=== PATIENT | male | born 1990 ===

== ENCOUNTER 2016-10-01 18:44 | Emergency (ER) | payer OTHER ==
[2016-10-01 19:01] VITALS: TEMP 97.8; O2SAT 99
--- NOTE | 2016-10-01 19:50 | C.PDOC ---
History Of Present Illness 26 year old patient presents to the ED requesting detox from heroin. Patient reports he snorts it. Patient was here 2 weeks ago in the detox program, and signed out due to immigration issues. Patient denies suicidal ideation, other substance abuse, or any other complaints at this time. Time Seen by Provider: 10/01/16 19:00 Chief Complaint (Nursing): Substance Abuse History Per: Patient History/Exam Limitations: no limitations Onset/Duration Of Symptoms: Other Current Symptoms Are (Timing): Still Present Suicide/Self Injury Attempted (Context): None Modifying Factor(s): Other (heroin) Severity: None Pain Scale Rating Of: 0 Associated Symptoms: denies: Suicidal Thoughts Recent travel outside of the [place]: No Past Medical History Reviewed: Historical Data, Nursing Documentation, Vital Signs Vital Signs: Last Vital Signs Temp 97.8 F 10/01/16 18:58 Pulse 97 H 10/01/16 20:22 Resp 17 10/01/16 20:22 BP 149/83 10/01/16 20:22 Pulse Ox 99 10/01/16 20:56 Family History: States: Unknown Family Hx - Social History Hx Alcohol Use: No Hx Substance Use: Yes - Immunization History Hx Tetanus Toxoid Vaccination: No Hx Influenza Vaccination: No Hx Pneumococcal Vaccination: No Review Of Systems Except As Marked, All Systems Reviewed And Found Negative. Psych: Negative for: Suicidal ideation Physical Exam - Physical Exam Appears: Well, Non-toxic, No Acute Distress Skin: Dry Head: Atraumatic, Normacephalic Eye(s): bilateral: PERRL Nose: No Epistaxis Oral Mucosa: Moist Tongue: No Swelling Lips: No Swelling Neck: Normal ROM, Supple Cardiovascular: Rhythm Regular Respiratory: No Decreased Breath Sounds, No Accessory Muscle Use Gastrointestinal/Abdominal: No Soft, No Tenderness Neurological/Psych: Oriented x3, Other (no focal deficits) Gait: Steady ED Course And Treatment O2 Sat by Pulse Oximetry: 99 (RA) Pulse Ox Interpretation: Normal Medical Decision Making Medical Decision Making: No detox beds are available at this time. List of other options are provided to the patient. Patient requests something to help with the symptoms. Plan: * Catapres Disposition - Disposition Referrals: [facility] at [facility] [Outside] Disposition: HOME/ ROUTINE Disposition Time: 20:22 Condition: STABLE Additional Instructions: Please follow up with a primary doctor. Return to the ER for any worsening symptoms or for any other concerns. Instructions: Narcotic Abuse (ED) Forms: General Discharge Instructions - Clinical Impression Clinical Impression: Opiate dependence - Scribe Statement The provider has reviewed the documentation as recorded by the Scribe Dionne Holland Provider Attestation: All medical record entries made by the Scribe were at my direction and personally dictated by me. I have reviewed the chart and agree that the record accurately reflects my personal performance of the history, physical exam, medical decision making, and the department course for this patient. I have also personally directed, reviewed, and agree with the discharge instructions and disposition.
[2016-10-01 20:23] VITALS: BP 149/83; PULSE 97; RESP 17
== END 2016-10-01 20:23 | disposition home or self-care (01) ==
LOC: C.ER 18:44
DX: F11.20 Opioid dependence, uncomplicated (principal)

== ENCOUNTER 2017-03-18 13:04 | Emergency (ER) | payer SELFPAY ==
[2017-03-18 13:26] VITALS: RESP 20; TEMP 98.5; O2SAT 97
--- NOTE | 2017-03-18 13:50 | C.PDOC ---
History Of Present Illness 03/18/2017 Pt is a 26 year old male, who presents to the emergency department requesting HIV testing. Patient reports that two months ago he had unprotected sex with a female who recently learned about a previous partner who was HIV positive (she had sex with that previous partner 6 months ago). Patient denies any fever, penile discharge, dysuria, shortness of breath, nausea, vomiting, diarrhea, or other complaints. PMD: None Time Seen by Provider: 03/18/17 13:36 Chief Complaint (Nursing): Male Genitourinary History Per: Patient History/Exam Limitations: no limitations Associated Symptoms: denies: Fever, Nausea, Vomiting, Diarrhea, Chest Pain Past Medical History Reviewed: Historical Data, Nursing Documentation, Vital Signs Vital Signs: Last Vital Signs Temp 98.5 F 03/18/17 13:24 Pulse 88 03/18/17 13:55 Resp 20 03/18/17 13:55 BP 118/72 03/18/17 13:55 Pulse Ox 97 03/18/17 14:01 Family History: States: No Known Family Hx - Social History Hx Alcohol Use: No Hx Substance Use: Yes (sniffs heroin; denies IVDA) - Immunization History Hx Tetanus Toxoid Vaccination: No Hx Influenza Vaccination: No Hx Pneumococcal Vaccination: No Review Of Systems Constitutional: Negative for: Fever Cardiovascular: Negative for: Chest Pain Respiratory: Positive for: Cough Gastrointestinal: Negative for: Nausea, Vomiting, Abdominal Pain Genitourinary: Positive for: Other (HIV rapid test). Negative for: Dysuria, Penile Discharge Physical Exam - Physical Exam Appears: Well, Non-toxic, No Acute Distress Skin: Normal Color, Warm, Dry Head: Atraumatic, Normacephalic Eye(s): bilateral: Normal Inspection, EOMI Ear(s): Bilateral: Normal Nose: Normal Tongue: Normal Appearing Lips: Normal Appearing Teeth: Normal Dentition Throat: Normal Neck: Normal Lymphatic: Deferred Chest: Symmetrical Cardiovascular: Rhythm Regular Respiratory: Normal Breath Sounds Gastrointestinal/Abdominal: Normal Exam, Soft, No Tenderness Back: Normal Inspection Extremity: Normal ROM Extremity: Bilateral: Atraumatic Neurological/Psych: Oriented x3, Normal Speech, Normal Motor, Normal Sensation Gait: Steady ED Course And Treatment O2 Sat by Pulse Oximetry: 97 (room air) Pulse Ox Interpretation: Normal Medical Decision Making Medical Decision Makin03/18/2017 Impression: Concern for HIV Plan: -- Rapid HIV test -- Reassess and disposition Progress Notes: 1:40 PM - After patient learned the HIV test would take one hour, patient decided to leave and wants to follow up on another date. Patient was advised to wait and was told about the importance of the test results. Pt states that he will follow up as an outpatient at our [facility]. Pt also advised to practice safe sex (wear condom). Disposition - Disposition Referrals: [facility] at [facility] [Outside] Disposition: HOME/ ROUTINE Disposition Time: 13:50 Condition: STABLE Additional Instructions: Mr. David, thank you for letting us take care of you today. Please make an appointment at our [facility] by calling the phone number listed below. They will be able to do HIV testing for you. Please practice safe sex; always use a condom. Instructions: HIV Transmission (ED) Forms: [facility] (Faroese), General Discharge Instructions Print Language: BERMUDIAN - POA Present On Arrival: None - Clinical Impression Clinical Impression: Unprotected sexual intercourse - Scribe Statement The provider has reviewed the documentation as recorded by the Scribe 03/18/2017 Scribe Attestation: Katharine Robibe Attestation: All medical record entries made by the Scribe were at my direction and personally dictated by me. I have reviewed the chart and agree that the record accurately reflects my personal performance of the history, physical exam, medical decision making, and the department course for this patient. I have also personally directed, reviewed, and agree with the discharge instructions and disposition.
[2017-03-18 14:10] VITALS: BP 118/72; PULSE 88
== END 2017-03-18 14:00 | disposition home or self-care (01) ==
LOC: C.ER 13:04
DX: Z04.8 Encounter for examination and observation for other specified reasons (principal)